=== PATIENT | female | born 1975 | race American Indian/Alaskan Native ===

== ENCOUNTER 2024-07-10 03:20 | Emergency (ER) | payer SELFPAY ==
[2024-07-10 03:21] VITALS: BMI 26.4
[2024-07-10 03:54] VITALS: BP 102/68; PULSE 63; RESP 17; TEMP 36.8; O2SAT 97
--- NOTE | 2024-07-10 04:09 | PD.EDUPEX ---
Upper Extremity Injury RME/HPI General Chief Complaint: Extremity Injury, Upper Stated Complaint: LEFT ARM PAIN/FELL X 6 MONTHS Time Seen by Provider: 07/10/24 03:42 Source: patient Arrival date/time: 07/10/24 03:20 49-year-old female presents emergency department complaining of left elbow pain that is been ongoing for over 6 months. Patient denies any recent trauma or injury. Patient denies any fever, chills, or any other associated symptom. Mode of arrival: ambulatory Limitations: no limitations Related Data Previous Rx's ?Medication ?Instructions ?Recorded hydrocodone 5 mg-acetaminophen 325 1 tab PO BID PRN pain #7 tabs 07/10/24 mg tablet Allergies Allergy/AdvReac Type Severity Reaction Status Date / Time fentanyl Allergy Severe Itching Verified 12/16/22 08:29 ibuprofen Allergy Severe VOMITING Verified 12/16/22 08:29 ketorolac Allergy Severe VOMITING Verified 12/16/22 08:29 meloxicam AdvReac Severe VOMITING Verified 12/16/22 08:29 Review of Systems Review of Systems Systems Reviewed: All systems reviewed, normal except as documented Constitutional Constitutional: Reports system reviewed and no additional complaints, except as documented, Denies body ache(s), Denies chills and Denies fever(s) Eyes Eyes: Reports system reviewed and no additional complaints, except as documented and Denies change in vision ENT Ears, Nose, Mouth, and Throat: Reports system reviewed and no additional complaints, except as documented, Denies disequilibrium, Denies dizziness, Denies sore throat and Denies vertigo Cardiovascular Cardiovascular: Reports system reviewed and no additional complaints, except as documented, Denies chest pain and Denies dyspnea Respiratory Respiratory: Reports system reviewed and no additional complaints, except as documented, Denies chest congestion, Denies cough and Denies dyspnea Gastrointestinal Gastrointestinal: Reports system reviewed and no additional complaints, except as documented, Denies abdominal pain, Denies nausea and Denies vomiting Musculoskeletal Musculoskeletal: Reports system reviewed and no additional complaints, except as documented, Denies abnormal gait and Reports arthralgias Integumentary/Breasts Skin/Breast: Reports system reviewed and no additional complaints, except as documented, Denies erythema, Denies rash and Denies wounds Neurologic Neurologic: Reports system reviewed and no additional complaints, except as documented, Denies abnormal gait, Denies disequilibrium, Denies dizziness and Denies vertigo Past Medical History Past Medical History NEUROLOGIC: Negative Seizures CARDIAC: Negative Cardiac Disorders or Congestive Heart Failure RESPIRATORY: Negative Chronic Obstructive Pulmonary Disease (COPD) or Asthma GASTROINTESTINAL: Positive Gall Bladder Disease GENITOURINARY: Positive Renal Disease and Kidney Stones ENDOCRINE: Negative Diabetes Mellitus Type 1 or Diabetes Mellitus Type 2 HEMATOLOGIC: Negative Sickle Cell Disease PSYCHO/SOCIAL: Positive Anxiety OTHER HISTORY: Positive Chicken Pox; Negative Blood Transfusions, Blood Transfusion Reaction or Anesthesia Reactions Surgical History SURGICAL: Positive Amputation (R Index Finger) and Hysterectomy Social History SMOKING STATUS: Current every day smoker ED Exam General Limitations: Present no limitations General appearance: Present alert and in no apparent distress Head Head exam: Present atraumatic Eye Eye exam: Present normal appearance, PERRL and EOMI ENT ENT exam: Present normal exam, normal oropharynx and mucous membranes moist Neck Neck exam: Present normal inspection, full ROM and trachea midline Chest Chest inspection: Present normal inspection and symmetric chest wall rise Respiratory Respiratory exam: Present normal lung sounds bilaterally Cardiovascular Cardiovascular exam: Present regular rate, normal rhythm and normal heart sounds Abdominal Exam Abdominal exam: Present soft and normal bowel sounds Extremities Exam Extremities exam: Present normal inspection and full ROM Expanded Upper Extremity Exam Elbow exam: Present full ROM (Limited active range of motion); Absent swelling, deformity or erythema Back Exam Back exam: Present normal inspection and full ROM Neurological Exam Neurological exam: Present alert, oriented X3 and CN II-XII intact Psychiatric Psychiatric exam: Present normal affect and normal mood Skin Skin exam: Present warm, dry, intact and normal color Course Quality Measures none Orders Category Date Time Status HYDROcodone*/APAP 5/325 [[place] 5/325] Med 07/10/24 04:06 Discontinued 1 tab PO X1 ONE Vital Signs Vital signs: Vital Signs Temperature 98.2 F 07/10/24 03:54 Pulse Rate 63 07/10/24 03:54 Respiratory Rate 17 07/10/24 03:54 Blood Pressure 102/68 07/10/24 03:54 Pulse Oximetry (%) 97 07/10/24 03:54 Oxygen Delivery Method Room Air 07/10/24 03:54 97% room air within normal limits Extremity Injury MDM Narrative MDM Narrative:: 49-year-old female presents emergency department complaining of left elbow pain that is been ongoing for over 6 months. Patient denies any recent trauma or injury. Patient denies any fever, chills, or any other associated symptom. Left elbow limited active range of motion. Left upper extremity neurovascular intact. No obvious erythema, swelling, or signs of infection. Patient given pain medication and instructed to follow-up with primary care provider return to emergency department for any worsening symptoms or as needed. Patient data External records reviewed:: [facility] previous records Clinical information provided by:: patient Social determinants that could affect healthcare access:: none Patient has the following chronic illnesses:: See chart How is presenting disease/condition affected by chronic disease/condition?: uneffected by Evaluation data The following diagnostics were reviewed and interpreted by me:: other (specify) (N/A) Lab and/or radiology exams considered but not ordered:: N/A Interpretation Summary: N/A Medications / Prescriptions Medications or Prescriptions considered but not ordered:: Ordered Medication administrations:: Medication Administration History Discontinued Medications Hydrocodone Bitart/Acetaminophen (Hydrocodone/Apap 5/325 Tablet) 1 tab PO X1 ONE Stop: 07/10/24 04:07 Given Consultations Consultation(s) initiated? (list below): No Diagnosis Upper Extremity Injury Differential Diagnosis: other (Elbow fracture, arthritis, septic joint, calcific tendinitis) Most likely diagnosis given after review of the tests above:: Elbow joint pain Admission Indicated Admission indicated?: not indicated Admission Request Was there a request for admission?: No Disposition Plan Disposition Plan: Discharge Discharge Attestation Discharge Attestation: The patient and all family members were given an opportunity to ask questions and understood the discharge instructions. Discharge instructions specifically effects, indications for sooner follow up or return to the emergency department, and the expected course of current diagnosis. Patient condition: Stable Discharge Plan Plan Patient Disposition: HOME (Self Care) Disposition Comment: Stable Prescriptions/Referrals Prescriptions/Med Rec: New hydrocodone-acetaminophen 5-325 mg tablet 1 tab PO BID MDD 2 tabs PRN (Reason: pain) Qty: 7 0RF Problem List Clinical Impression: Elbow joint pain Patient/Caregiver Discharge Instructions Discharge Activity: activity as tolerated Education Materials: CHERYL RUFFIN Arthralgia Additional Instructions: Take pain medication as prescribed. Follow-up with primary care provider in 2 to 3 days and request referral physical therapy, x-ray, or MRI of elbow if symptoms persist. Return to emergency department for any worsening symptoms or as needed. Print Language: [place] Stand Alone Forms: [facility] Award Info., Patient Portal Info Letter PA/[employer]STATIC [employer]S SUPERVISOR Supervising Physician PA/THER[employer] SUPERVISOR Supervising Physician: Dr. Zabala
[2024-07-10] MEDS: HYDROcodone/APAP 5/325 TABLET 1 TAB PO (04:17)
== END 2024-07-10 04:23 | disposition home or self-care (01) ==
PROVIDERS: Emergency Provider Emergency Medicine; PCP Family Medicine
DX: M25.522 Pain in left elbow (principal)
CPT/HCPCS: 99283; A9270